=== PATIENT | male | born 1995 ===

== ENCOUNTER 2022-02-02 20:58 | Emergency (ER) | payer OTHER, SELFPAY ==
[2022-02-02] VITALS (7 sets, daily range): BP systolic 129–165; BP diastolic 57–85; PULSE 84; RESP 18–20; TEMP 37.1; O2SAT 98–100; BMI 24.3
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
--- NOTE | 2022-02-02 21:48 | XRR_ITS ---
PROCEDURE INFORMATION: Exam: XR Left Tibia and Fibula Exam date and time: 02/02/2022 9:59 PM Age: 26 years old Clinical indication: Pain; Lower leg; Left; Additional info: Laceration, eval foreign objects/fx TECHNIQUE: Imaging protocol: XR Left tibia and fibula. Views: 2 views. COMPARISON: No relevant prior studies available. FINDINGS: Bones/joints: Normal. Soft tissues: Soft tissue lesion on the medial side of the lower leg. Skin and superficial soft tissues are disrupted. Minimal radiopaque debris superficially. XR/XR tibia fibula LT 2V [id number] IMPRESSION: No osseous injury.
[2022-02-02] MEDS: tetanus-dipt-pertussis 0.5 mL SDV IM (22:14)
[2022-02-02] MEDS: morphine 4 mg/mL SDV 1 mL IM (22:17)
[2022-02-02] MEDS: sodium bicarbonate 8.4% 1 mEq/mL 50mL Syr 50 MEQ IVP (22:18)
--- NOTE | 2022-02-02 22:18 | PC.NURSE ---
bicarb and lido given to doc for numbing
--- NOTE | 2022-02-02 22:54 | PC.NURSE ---
laceration is 3 inches x1 inch
--- NOTE | 2022-02-02 22:56 | PC.NURSE ---
at bedside suturing patient
[2022-02-03 00:42] VITALS: BP 102/68; PULSE 64; RESP 18; O2SAT 98
== END 2022-02-03 00:48 | disposition home or self-care (01) ==
PROVIDERS: Emergency Provider Emergency Medicine
DX: S81.812A Laceration without foreign body, left lower leg, initial encounter (principal); V86.99XA Unspecified occupant of other special all-terrain or other off-road motor vehicle injured in nontraffic accident, initial encounter; Z23 Encounter for immunization
CPT/HCPCS: 13121; 13122; 73590; 90471; 90715; 96372; 96374; 99283; E0114; J2270